=== PATIENT | female | born 1955 | race Caucasian/White ===

== ENCOUNTER → 2016-04-19 | Outpatient (CLI) | payer BC ==
--- NOTE | 2016-04-20 11:06 | RAD ---
DATE: 04/19/2016 EXAM: DIGITAL SCREEN BILAT W/CAD HISTORY: Routine screening COMPARISON: 09/15/2014 This study was interpreted with the benefit of Computerized Aided Detection (CAD). FINDINGS: The breasts are heterogeneously dense which can reduce the sensitivity of mammography. No new or enlarging breast densities are seen. Benign type calcifications are again noted. No suspicious microcalcifications are evident. Benign-appearing lymph node type densities are present in the axillary regions. IMPRESSION: Stable mammograms without evidence of malignancy. BI-RADS CATEGORY: 2 BENIGN FINDING(S) RECOMMENDED FOLLOW-UP: 12M 12 MONTH FOLLOW-UP PQRS compliance statement: Patient information was entered into a reminder system with a target due date for the next mammogram. Mammography is a sensitive method for finding small breast cancers, but it does not detect them all and is not a substitute for careful clinical examination. A negative mammogram does not negate a clinically suspicious finding and should not result in delay in biopsying a clinically suspicious abnormality. "Our facility is accredited by the [employer] Mammography [employer]."
== END | disposition home or self-care (01) ==
LOC: MAMMO 15:00
PROVIDERS: ATTEND Family Medicine
DX: Z12.31 Encounter for screening mammogram for malignant neoplasm of breast (principal)
CPT/HCPCS: G0202; 77067

== ENCOUNTER → 2016-09-13 | Outpatient (CLI) | payer BC ==
[~2016-09-13] MED LIST: CLOM50CA3 PO; CLON1TAB PO; LEVO50TA PO; QUET200T4 PO; SERT100T PO; TRAZ100T12 PO
--- NOTE | 2016-09-13 16:57 | RAD ---
Acute abdomen series with chest, 09/13/2016: History: Preop for colonoscopy, constipation There is a moderate amount of stool scattered throughout the colon. The abdominal gas pattern is otherwise unremarkable. No free air is seen in the abdomen. There is no evidence of organomegaly. Lower pelvic calcifications are probably phleboliths. There is a mild thoracolumbar scoliosis. There is slight elevation of the left hemidiaphragm. The heart size and pulmonary vascularity are normal. There is mild bibasilar linear scarring and/or atelectasis. The upper lung cornell are clear. IMPRESSION: 1. Increased stool throughout the colon. 2. Mild elevation of the left hemidiaphragm. 3. Mild bibasilar linear scarring and/or atelectasis.
== END | disposition home or self-care (01) ==
LOC: RAD 14:35
PROVIDERS: ATTEND Internal Medicine Gastroenterology
DX: K59.00 Constipation, unspecified (principal)
CPT/HCPCS: 74022

== ENCOUNTER → 2016-09-18 | Day surgery (SDC) | payer BC ==
[~2016-09-18] MED LIST changes: +IV RINGERS,LACTATED 1000ML 1,000 ML IV SCH; +PROPOFOL 20 ML IV ONE
[2016-09-18 08:26] VITALS: BP 137/70
--- NOTE | 2016-09-18 23:07 | CONS ---
DATE OF CONSULTATION: 09/18/2016 REFERRING PHYSICIAN: Veronica Crooks MD HISTORY OF PRESENT ILLNESS: This is a 61-year-old female with past medical history significant for anxiety, depression, hyperlipidemia, and hypothyroidism. Family history of colon polyps with her mother. Seen for interval colonoscopy, last exam was over 5 years ago, which was undergone ____ prep. She otherwise denies any bleeding at this time. Change in bowel habits with continued constipation for which she has been taking MiraLax and probiotics. Weight and appetite are stable and she is otherwise without additional complaints. PAST MEDICAL HISTORY: Hyperlipidemia, anxiety, depression, hypothyroidism. ALLERGIES: CODEINE. MEDICATIONS: Include Anafranil, Klonopin, Seroquel, Zoloft, trazodone. FAMILY AND SOCIAL HISTORY: She is a nonsmoker, nondrinker, no previous surgeries. REVIEW OF SYSTEMS: Per records. PHYSICAL EXAMINATION: GENERAL: Reveals well-nourished, well-developed female. VITAL SIGNS: Temperature is 96.9, pulse 88, respiration 18. HEENT: Normocephalic and atraumatic. Pupils and extraocular movements not tested. Sclerae anicteric. NECK: Supple. LUNGS: Clear. CARDIOVASCULAR: Reveals an S1, S2 without S3, S4 or appreciable murmur. ABDOMEN: Reveals soft abdomen, normal bowel sounds, without appreciable hepatosplenomegaly. EXTREMITIES: Reveals no cyanosis, clubbing or edema. IMPRESSION: Colorectal screening is warranted at this time. Risks and benefits of procedure including risk of perforation requiring operation have been discussed with the patient is willing to proceed at this time. I thank Dr. Crooks for allowing us to consult and participate in patient's care. TATO OJEDA MD DR: APRIL/david JOB#: [id number] / [id number]
== END | disposition home or self-care (01) ==
LOC: ENDOS 06:28
PROVIDERS: ATTEND Internal Medicine Gastroenterology
DX: Z12.11 Encounter for screening for malignant neoplasm of colon (principal); K64.0 First degree hemorrhoids; E78.00 Pure hypercholesterolemia, unspecified; I10 Essential (primary) hypertension; M19.90 Unspecified osteoarthritis, unspecified site; F41.9 Anxiety disorder, unspecified; F32.9 Major depressive disorder, single episode, unspecified; E03.9 Hypothyroidism, unspecified; Z87.39 Personal history of other diseases of the musculoskeletal system and connective tissue; Z86.39 Personal history of other endocrine, nutritional and metabolic disease
CPT/HCPCS: 45378; J2704

== ENCOUNTER → 2017-08-01 | Outpatient (CLI) | payer BC | END | disposition home or self-care (01) | LOC: MAMMO 10:45 | DX: Z12.31 Encounter for screening mammogram for malignant neoplasm of breast (principal); I10 Essential (primary) hypertension; E78.00 Pure hypercholesterolemia, unspecified; E03.9 Hypothyroidism, unspecified | CPT/HCPCS: 77063; 77067 ==

== ENCOUNTER 2017-08-04 20:06 | Emergency (ER) | payer BC ==
[2017-08-04] MEDS: IOHEXOL 300 MG/ML 100ML VIAL. IV (20:45)
[2017-08-04 20:46] LABS: ADD MAN DIFF? NO
[2017-08-04 20:48] LABS: BASO # 0.1 x10^3/uL (0.0-0.2); BASO % 1 % (0-3); EOS # 0.1 x10^3/uL (0.0-0.7); EOS % 1 % (0-3); HEMATOCRIT 39.1 % (36.0-47.0); HEMOGLOBIN 13.2 g/dL (12.0-15.5); LYMPH # 2.5 x10^3/uL (1.0-4.8); LYMPH % 32 % (24-48); MEAN CORPUSCULAR HEMOGLOBIN 31 pg (25-35); MEAN CORPUSCULAR HGB CONC 34 g/dL (31-37); MEAN CORPUSCULAR VOLUME 92 fL (79-100); MONO # 0.7 x10^3/uL (0.0-1.1); MONO % 8 % (0-9); NEUT # 4.5 x10^3uL (1.8-7.7); NEUT % 58 % (31-73); PLATELET COUNT 346 x10^3/uL (140-400); RED BLOOD COUNT 4.25 x10^6/uL (3.50-5.40); RED CELL DISTRIBUTION WIDTH 13.3 % (11.5-14.5); WHITE BLOOD COUNT 7.8 x10^3/uL (4.0-11.0)
[2017-08-04 20:58] LABS: PROTHROMBIN TIME PATIENT 13.1 SEC (11.7-14.0)
[2017-08-04 21:00] LABS: ANION GAP 7 (6-14); BLOOD UREA NITROGEN 17 mg/dL (7-20); BUN/CREATININE RATIO 19 (6-20); CALCIUM 9.1 mg/dL (8.5-10.1); CARBON DIOXIDE 31 mmol/L (21-32); CHLORIDE 104 mmol/L (98-107); CREATININE 0.9 mg/dL (0.6-1.0); GFR 63.4; GLUCOSE 114 mg/dL (70-99); POTASSIUM 3.9 mmol/L (3.5-5.1); SODIUM 142 mmol/L (136-145)
[2017-08-04 21:06] LABS: ALBUMIN 3.4 g/dL (3.4-5.0); ALBUMIN/GLOBULIN RATIO 0.9 (1.0-1.7); ALK PHOS 82 U/L (46-116); ALT (SGPT) 16 U/L (14-59); AST (SGOT) 14 U/L (15-37); TOTAL BILIRUBIN 0.2 mg/dL (0.2-1.0); TOTAL PROTEIN 7.1 g/dL (6.4-8.2)
[2017-08-04 21:09] LABS: TROPONINI < 0.017 ng/mL (0.000-0.055)
== END 2017-08-04 23:55 | disposition home or self-care (01) ==
LOC: ER 20:06
DX: R07.89 Other chest pain (principal); E03.9 Hypothyroidism, unspecified; Z79.899 Other long term (current) drug therapy; Z88.5 Allergy status to narcotic agent
CPT/HCPCS: 36415; 71275; 80053; 84484; 85025; 85610; 93005; 99285; Q9967

== ENCOUNTER → 2017-09-16 | Outpatient (CLI) | payer BC | END | disposition home or self-care (01) | LOC: RAD 07:49 | DX: J98.6 Disorders of diaphragm (principal) | CPT/HCPCS: 76000 ==

== ENCOUNTER → 2018-11-24 | Outpatient (CLI) | payer BC, OTHER ==
[2017-08-04 23:30] VITALS: BP 110/75
[~2018-11-24] MED LIST changes: -IV RINGERS,LACTATED 1000ML 1,000 ML IV SCH; -PROPOFOL 20 ML IV ONE; +TRAZ-86 PO; -TRAZ100T12 PO
--- NOTE | 2018-11-24 17:40 | RAD ---
DATE: 11/24/2018 EXAM: DIGITAL SCREEN BILAT W/CAD HISTORY: Routine screening COMPARISON: 04/19/2016, 08/01/2017 mammographic exams This study was interpreted with the benefit of Computerized Aided Detection (CAD). Breast Density: HETERO The breast parenchyma is heterogenously dense, which could reduce sensitivity of mammography. Breast parenchyma level C. FINDINGS: Minimal benign calcification. No mass or distortion. IMPRESSION: Stable BI-RADS CATEGORY: 1 NEGATIVE RECOMMENDED FOLLOW-UP: 12M 12 MONTH FOLLOW-UP PQRS compliance statement: Patient information was entered into a reminder system with a target due date in one year for the next mammogram. Mammography is a sensitive method for finding small breast cancers, but it does not detect them all and is not a substitute for careful clinical examination. A negative mammogram does not negate a clinically suspicious finding and should not result in delay in biopsying a clinically suspicious abnormality. "Our facility is accredited by the [employer] Mammography [employer]."
== END | disposition home or self-care (01) ==
LOC: MAMMO 15:11
PROVIDERS: ATTEND Family Medicine
DX: Z12.31 Encounter for screening mammogram for malignant neoplasm of breast (principal); N64.89 Other specified disorders of breast
CPT/HCPCS: 77067

== ENCOUNTER 2019-06-07 12:49 | Emergency (ER) | payer OTHER ==
[~2019-06-07] VITALS: Ht 162.6 cm; Wt 72.7 kg
[~2019-06-07 12:49] MED LIST changes: +TRAZ-123 PO; -TRAZ-86 PO
[2019-06-07 13:51] LABS: INFLUENZA A PATIENT NEGATIVE (NEGATIVE); INFLUENZA B PATIENT NEGATIVE (NEGATIVE)
--- NOTE | 2019-06-07 14:03 | PHYS DOC ---
Past Medical History Past Medical History: Endometriosis, Hypothyroid, Other Additional Past Medical Histor: OCD (EVANGELISTA MAYS) Past Surgical History: Hysterectomy, Other Additional Past Surgical Histo: ovarian cyst removal (EVANGELISTA MAYS) Smoking Status: Never Smoker Alcohol Use: None Drug Use: None (EVANGELISTA MAYS) Adult General Chief Complaint Chief Complaint: FLU SYMPTOM HPI HPI Patient is a 64 year old F who comes to ER today with concern of "flu or Jacob virus". Pt states she flew to [place], [place] on 05/29/2019 and then returned to [place] on 06/04/2019 and on the flight out to [place] there was someone next to her on plane coughing on her. She then on 06/06/2019 has developed fever (subjective up to 100.0), cough, sore throat and congestion. She called our ER earlier today to find out what she needs to do if she is concerned about Jacob Virus and was told she could come in for evaluation. Pt does have mild underlying asthma but denies SOB. She denies chest pain, abd pain, vomiting or diarrhea but has had mild nausea. Chely Yuen, Infection Prevention was here in department to give guidance. (EVANGELISTA MAYS) Review of Systems Review of Systems Constitutional: Reports fever and chills. HENT: Reports sore throat and nasal congestion. Respiratory: Reports cough. Cardiovascular: Denies chest pain. GI: Denies abdominal pain, nausea, vomiting, bloody stools or diarrhea Musculoskeletal: Denies back pain or joint pain Integument: Denies rash or skin lesions Neurologic: Denies headache, focal weakness or sensory changes All other systems were reviewed and found to be within normal limits, except as documented in this note. (EVANGELISTA MAYS) Allergies Allergies Allergies Coded Allergies Type Severity Reaction Last Updated Verified codeine Allergy Intermediate 09/18/16 Yes (MARTHA OCONNELL DO) Physical Exam Physical Exam Constitutional: Well developed, well nourished, no acute distress, non-toxic appearance. HENT: Normocephalic, atraumatic, bilateral external ears normal, oropharynx moist, no oral exudates. Clear nasal drainage. Neck: Normal range of motion, no tenderness, supple, no stridor. Cardiovascular:Heart rate regular rhythm, no murmur Lungs & Thorax: Mild coarse breath sounds in RLL. Abdomen: Bowel sounds normal, soft, no tenderness, no masses, no pulsatile masses. Skin: Warm, dry, no erythema, no rash. Back: No tenderness, no CVA tenderness. Extremities: No tenderness, no cyanosis, no clubbing, ROM intact, no edema. Neurologic: Alert and oriented X 3, normal motor function, normal sensory function, no focal deficits noted. Psychologic: Affect normal, judgement normal, mood normal. (EVANGELISTA MAYS) Current Patient Data Vital Signs Vital Signs Date Time Temp Pulse Resp B/P (MAP) Pulse Ox O2 Delivery O2 Flow Rate FiO2 06/07/19 14:42 76 16 105/59 (74) 94 Room Air 06/07/19 12:55 98.0 98.0 (MARTHA OCONNELL DO) Lab Values Laboratory Tests Test 06/07/19 13:20 Influenza Type A Antigen Negative (NEGATIVE) Influenza Type B Antigen Negative (NEGATIVE) (MARTHA OCONNELL DO) EKG EKG [] (EVANGELISTA MAYS) Radiology/Procedures Radiology/Procedures CXR negative (EVANGELISTA MAYS) Course & Med Decision Making Course & Med Decision Making Flu swab came back negative and CXR normal. - -Called [facility] hotline at [phone] and they reported that the black belt will call me back and then also called [facility] Department at [phone] to alert them. Brenda with [facility] called back and we reviewed the case. Since pt was not in contact with anyone with known/confirmed Coronavirus and was not in a country of high concern and does not currently have severe respiratory symptoms, testing for Coronovirus is not indicated. Pt to go home, stay away from others until fever free for over 24 hours and return with any worsening symptoms. Initially wrote for Guafenesin and Phenergan with codiene syrup but pt reports she is allergic to Codeine so it was switched to Hydrocodone cough syrup. Pt will be treated for bronchitis and viral syndrome and discussed that suspect flu variant but that we cannot know with 100% certainty that this is not Coronavirus and so she should stay home and away from others until fever free and cough improved. Pt and her voice understanding and plan to stay at home. (EVANGELISTA MAYS) Dragon Disclaimer Dragon Disclaimer This electronic medical record was generated, in whole or in part, using a voice recognition dictation system. (EVANGELISTA MAYS) Departure Departure Impression: Primary Impression: Bronchitis Additional Impression: Viral syndrome Disposition: HOME, SELF-CARE Condition: STABLE Referrals: SALLY FERNÁNDEZ MD (PCP) Patient Instructions: Viral Syndrome Additional Instructions: Rest, push fluids and treat fever and symptoms. Return to ER with any worsening symptoms. Please stay at home and out of public until fever free for 24 hours and wear mask around others for up to a week. Scripts Hydrocodone Bit/Homatrop Me-Br (HYDROCODONE-HOMATROPINE SYRUP) 5 Ml Syrup 5 ML PO Q4HRS PRN for COUGH, #120 ML Prov: EVANGELISTA MAYS 06/07/19 Guaifenesin (GUAIFENESIN) 200 Mg Tablet 200 MG PO Q6-8HRS PRN for CONGESTION for 7 Days, #20 TAB Prov: EVANGELISTA MAYS 06/07/19 Guaifenesin/Codeine Phosphate (Codeine-Guaifen 10-100 mg/5 ml) 120 Ml Liquid 10 ML PO PRN Q4HRS PRN for cough and congestion MDD 60 Milliliter(s) for 4 Days, #240 ML 0 Refills Prov: EVANGELISTA MAYS 06/07/19 Attending Signature Attending Signature I have reviewed the PA/BRANDING MACHINE TENDER's note and plan of care. I was available for cons ultation as needed during the patient's visit in the emergency department. I agree with the clinical impression, plan, and disposition. (MARTHA OCONNELL DO) Problem Qualifiers EVANGELISTA MAYS Jun 07, 2019 14:03 MARTHA OCONNELL DO Jun 07, 2019 20:38
--- NOTE | 2019-06-07 14:13 | RAD ---
CHEST AP ONLY History: Cough. Fever. Comparison: CT August 04, 2017 Findings: Elevation of the left hemidiaphragm, unchanged. Left basilar mild atelectasis, unchanged. No consolidation. Normal heart size. No pneumothorax. Impression: 1. No acute cardiopulmonary process. 2. Elevation of the left hemidiaphragm with adjacent atelectasis, unchanged. Electronically signed by: Hever Rodrigues DO (06/07/2019 2:10 PM) [id number]
[2019-06-07 14:42] VITALS: BP 105/59
[2019-06-07] MEDS ORDERED: GUAI120L35 PO (15:00)
[2019-06-07] MEDS ORDERED: GUAI200T3 PO (15:00)
[2019-06-07] MEDS ORDERED: HYDR5SYR PO (15:09)
== END 2019-06-07 15:07 | disposition home or self-care (01) ==
LOC: ER 12:49
DX: J40 Bronchitis, not specified as acute or chronic (principal); B34.9 Viral infection, unspecified; E03.9 Hypothyroidism, unspecified
CPT/HCPCS: 71045; 87804; 99285-25

== ENCOUNTER → 2020-04-05 | Outpatient (CLI) | payer OTHER ==
[~2020-04-05] MED LIST changes: +GUAI120L35 PO; +GUAI200T3 PO; +HYDR5SYR PO
--- NOTE | 2020-04-05 16:19 | RAD ---
EXAM: Bilateral screening mammogram. HISTORY: 64-year-old female presents for screening mammography. TECHNIQUE: Full-field digital craniocaudal and mediolateral oblique views of both breasts are obtaine d for evaluation. Computer aided detection was applied. COMPARISON: 11/24/2018 BREAST PARENCHYMAL DENSITY: Level C - Heterogeneously dense. FINDINGS: There is no new suspicious mass, microcalcification or region of architectural distortion. IMPRESSION: BI-RADS Category 2: Benign finding(s). RECOMMENDATION: Annual mammography is recommended. If your mammogram demonstrates that you have dense breast tissue, which could hide abnormalities, and if you have other risk factors for breast cancer that have been identified, you might benefit from s upplemental screening tests that may be suggested by your ordering physician. Dense breast tissue, i n and of itself, is a relatively common condition. This information is not provided to cause undue c oncern, but rather to raise your awareness and to promote discussion with your physician regarding th e presence of other risk factors, in addition to dense breast tissue. A report of your mammography re sults will be sent to you and your physician. You should contact your physician if you have any ques tions or concerns regarding this report. Mammography is a sensitive method for finding small breast cancers, but it does not detect them all a nd is not a substitute for careful clinical examination. A negative mammogram does not negate a clin ically suspicious finding and should not result in delay in biopsying a clinically suspicious abnorma lity. PQRS compliance statement - Patient information was entered into a reminder system with a target due date for the next mammogram. "Our facility is accredited by the [employer] Mammography Program." Electronically signed by: Brenda Pemberton MD (04/05/2020 4:16 PM) [id number]
== END ==
LOC: MAMMO 16:06
PROVIDERS: ATTEND Family Medicine
DX: Z12.31 Encounter for screening mammogram for malignant neoplasm of breast (principal)
CPT/HCPCS: 77067

== ENCOUNTER → 2021-05-29 | Outpatient (CLI) | payer MEDICARE ==
--- NOTE | 2021-05-29 15:11 | RAD ---
INDICATION: 65 years of age asymptomatic female patient presents for screening mammography. No person al history of breast cancer. Family history of breast cancer maternal cousin age 63. TECHNIQUE: Full field craniocaudal and mediolateral oblique images of both breasts were obtained usi ng digital technique with tomosynthesis and also analyzed with computer-aided detection software. COMPARISON: Prior mammographic imaging dating back to 09/15/2014. BREAST COMPOSITION: Category C: The breast tissue is heterogeneously dense, which could obscure detec tion of small masses. FINDINGS: No suspicious masses, microcalcifications or architectural distortion is present to suggest malignanc y in either breast. The visualized axillae are unremarkable. IMPRESSION: No mammographic evidence of malignancy. RECOMMENDATION: Annual screening mammography is recommended, unless clinically indicated sooner based on symptoms or change in physical exam. BIRADS 2: BENIGN This study was interpreted with the benefit of Computerized Aided Detection (CAD). ?Your patient's mammogram demonstrates that she has dense breast tissue (breast density category C or D), which could hide abnormalities, and if she has other risk factors for breast cancer that have be en identified, she might benefit from supplemental screening tests that may be suggested by you as he r ordering physician. Dense breast tissue, in and of itself, is a relatively common condition. Theref ore, this information is not provided to cause undue concern, but rather to raise your awareness and to promote discussion with your patient regarding the presence of other risk factors, in addition to dense breast tissue. Your patient's mammography results will be sent to her. Patient information is entered into the reminder system with a target due date for the next screening mammogram. Mammography is the most sensitive method for finding small breast cancers, but it does not detect the m all and is not a substitute for careful clinical examination. A negative mammogram does not negate a clinically suspicious finding and should not result in delay in biopsying a clinically suspicious a bnormality. "Our facility is accredited by the [employer] Mammography Program." Electronically signed by: Luther Morales DO (05/29/2021 3:08 PM) [id number]
== END ==
LOC: MAMMO 14:09
PROVIDERS: ATTEND Family Medicine
DX: Z12.31 Encounter for screening mammogram for malignant neoplasm of breast (principal)
CPT/HCPCS: 77063; 77067